=== PATIENT | female | born 1970 | race Hispanic/Latino ===

== ENCOUNTER 2017-11-22 09:52 | Outpatient (CLI) | payer OTHER ==
--- NOTE | 2017-11-22 13:02 | MMO ---
BILATERAL SCREENING MAMMOGRAM: Comparison: 03-21-13, 15, 10-21-16 History: 47-year-old female. Routine screening mammography. FINDINGS: This study is interpreted with the assistance of computer aided detection. CC and MLO views of both breasts are submitted for interpretation. Breasts are comprised of dense fibroglandular tissue which limits sensitivity of mammography in the d etection of underlying malignancy. Bilaterally, no suspicious mass, architectural distortion or suspi cious calcification. Benign appearing calcifications in the left breast. IMPRESSION: BIRADS category 2 - benign findings. RECOMMENDATION: Annual mammography. POS: [facility]
== END 2017-11-22 09:53 | disposition home or self-care (01) ==
LOC: SCSMAMMO 09:52
PROVIDERS: ATTEND Family Medicine
DX: Z12.31 Encounter for screening mammogram for malignant neoplasm of breast (principal)
CPT/HCPCS: 77067

== ENCOUNTER 2019-08-31 08:57 | Outpatient (CLI) | payer OTHER ==
--- NOTE | 2019-08-31 10:00 | ULT ---
ULTRASOUND RIGHT BREAST: Date: 08/31/2019 INDICATION: Ultrasound right breast performed to assess nodular density seen on mammography. FINDINGS: There are two adjacent oblong shaped cysts in the right breast at the 8 o'clock region which correspo nds to the nodular opacity seen on mammography. The larger one measures approximately 3.0 x 1.2 x 3.0 cm. Smaller one measures approximately 2.0 x 1.0 x 2.0 cm. No suspicious sonographic abnormality. IMPRESSION: The ultrasound findings are BI-RADS Category 2 - Benign findings.
== END 2019-08-31 08:58 | disposition home or self-care (01) ==
LOC: BICMAMMO 08:57
PROVIDERS: ATTEND Family Medicine
DX: N63.10 Unspecified lump in the right breast, unspecified quadrant (principal)